=== PATIENT | male | born 1955 | race Caucasian/White ===

== ENCOUNTER → 2020-11-10 | Outpatient (CLI) | payer SELFPAY | LOC: M LABSMTC 09:41 | PROVIDERS: ATTEND Pediatrics | DX: Z11.52 Encounter for screening for COVID-19 (principal) ==

== ENCOUNTER → 2021-04-23 | Outpatient (CLI) | payer BC ==
[~2021-04-23] MED LIST: OLME20TA2 PO
== END ==
LOC: M LABSMTC 09:43
PROVIDERS: ATTEND Anesthesiology
DX: Z01.812 Encounter for preprocedural laboratory examination (principal); Z11.52 Encounter for screening for COVID-19

== ENCOUNTER 2021-04-28 07:31 | Day surgery (SDC) | payer MEDICARE, BC ==
[~2021-04-28] VITALS: Ht 180.3 cm; Wt 73.0 kg
[~2021-04-28 07:31] MED LIST changes: +LIDOCAINE 2% 100MG/5ML SDV (FOR ANES.) As Ordered ONE; +NS 1,000 ML IV ONE; +propofoL 200 MG/20 ML VIAL As Ordered ONE
--- NOTE | 2021-04-28 09:17 | ROOR ---
Patient Name: Alok Small Procedure Date: 04/28/2021 8:52 AM Date of : 1955 Age: 65 Room: [facility] Gender: Male Note Status: Finalized Procedure: Colonoscopy Indications: High risk colon cancer surveillance: Personal history of colonic polyps, Last colonoscopy: March 2015 Providers: Jairo Dwyer MD Referring MD: HOLLY GO MD Requesting Provider: Medicines: Monitored Anesthesia Care Complications: No immediate complications. Procedure: Pre-Anesthesia Assessment: - The heart rate, respiratory rate, oxygen saturations, blood pressure, adequacy of pulmonary ventilation, and response to care were monitored throughout the procedure. The Colonoscope was introduced through the anus and advanced to the terminal ileum, with identification of the appendiceal orifice and IC valve. Findings: The perianal and digital rectal examinations were normal. Two sessile polyps were found in the ascending colon. The polyps were 4 to 5 mm in size. These polyps were removed with a cold snare. Resection and retrieval were complete. There was evidence of a prior end-to-end colo-colonic anastomosis in the mid descending colon. This was patent and was characterized by healthy appearing mucosa. Mild sigmoid diverticulosis and small internal hemorrhoids. The exam was otherwise without abnormality on direct and retroflexion views. Impression: - Two 4 to 5 mm polyps in the ascending colon, removed with a cold snare. Resected and retrieved. - Patent end-to-end colo-colonic anastomosis, characterized by healthy appearing mucosa. - Mild sigmoid diverticulosis and small internal hemorrhoids. - The examination was otherwise normal on direct and retroflexion views. Recommendation: - Repeat colonoscopy in 5 years for adenoma surveillance. Procedure Code(s): --- Professional --- 66903, Colonoscopy, flexible; with removal of tumor(s), polyp(s), or other lesion(s) by snare technique Diagnosis Code(s): --- Professional --- Z86.010, Personal history of colonic polyps K63.5, Polyp of colon Z98.0, Intestinal bypass and anastomosis status CPT copyright 2019 [employer]. All rights reserved. The codes documented in this report are preliminary and upon health information coder review may be revised to meet current compliance requirements. Jairo Dwyer MD Jairo Dwyer MD 04/28/2021 9:17:09 AM Electronically signed by Jairo Dwyer MD Number of Addenda: 0 Note Initiated On: 04/28/2021 8:52 AM Estimated Blood Loss: Estimated blood loss: none.
[2021-04-28 09:34] VITALS: BP 115/63
== END 2021-04-28 09:45 | disposition home or self-care (01) ==
LOC: M OPP 07:31
PROVIDERS: ATTEND Internal Medicine Gastroenterology
DX: Z12.11 Encounter for screening for malignant neoplasm of colon (principal); Z86.010 Personal history of colon polyps; Z80.0 Family history of malignant neoplasm of digestive organs; D12.2 Benign neoplasm of ascending colon; K57.30 Diverticulosis of large intestine without perforation or abscess without bleeding; K64.8 Other hemorrhoids; Z98.0 Intestinal bypass and anastomosis status; Z85.47 Personal history of malignant neoplasm of testis; Z79.899 Other long term (current) drug therapy

== ENCOUNTER 2025-03-30 08:37 | Day surgery (SDC) | payer MEDICARE, BC ==
[~2025-03-30] VITALS: Ht 177.8 cm; Wt 70.8 kg
[~2025-03-30 08:37] MED LIST changes: -LIDOCAINE 2% 100MG/5ML SDV (FOR ANES.) As Ordered ONE; -NS 1,000 ML IV ONE; -OLME20TA2 PO; +OLME20TA50 PO; -propofoL 200 MG/20 ML VIAL As Ordered ONE
[2025-03-30 10:08] VITALS: TEMP 97.5
[2025-03-30 10:30] VITALS: BP 137/90; O2SAT 99
== END 2025-03-30 10:38 | disposition home or self-care (01) ==
LOC: M OPP 08:37
PROVIDERS: ATTEND Internal Medicine Gastroenterology
DX: K57.30 Diverticulosis of large intestine without perforation or abscess without bleeding (principal); K59.00 Constipation, unspecified; K64.8 Other hemorrhoids; Z98.0 Intestinal bypass and anastomosis status